=== PATIENT | female | born 1975 | race Caucasian/White ===

== ENCOUNTER 2018-09-02 16:13 | Emergency (ER) | payer MEDICAID, OTHER, SELFPAY ==
[~2018-09-02] VITALS: Ht 149.9 cm; Wt 77.3 kg
--- NOTE | 2018-09-02 16:52 | NUR ---
Patient to ED for being nausea and vomiting this morning since eating [employer]; patient presents tachypnic with hand cramps; patient encouraged to breath deep by provider and RN's at bedside; patient yelling at RN and provider stating cramps are due to dehydration; patient educated that source of cramps is from rapid breathing; patient denies; calms down periodically then becomes tachypnic again crying. Attached to monitor; vss; awaiting orders.
[2018-09-02] MEDS ORDERED: ONDANSETRON 2MG/ML, 2ML IVPush ONE (17:00)
[2018-09-02] MEDS ORDERED: ZIPRASIDONE 20 MG INJ IM ONE ×2 (17:00→17:06)
[2018-09-02] MEDS ORDERED: FAMOTIDINE 20 MG/2 ML IVP ONE (17:00)
[2018-09-02] MEDS ORDERED: MAALOX/HYOSCYAMINE/LIDOCAINE 45 ML BTL PO ONE (17:00)
[2018-09-02] MEDS ORDERED: FAMOTIDINE 20 MG/2 ML ONE (17:06)
[2018-09-02] MEDS ORDERED: ONDANSETRON 2MG/ML, 2ML ONE (17:06)
[2018-09-02] MEDS ORDERED: MAALOX/HYOSCYAMINE/LIDOCAINE 45 ML BTL ONE (17:06)
--- NOTE | 2018-09-02 17:24 | NUR ---
LUNCH RN: PIV PLACED and medicated per emar.
[2018-09-02 17:29] LABS: BASOPHILS # (AUTO) 0.02 x10^3/uL (0-0.1); BASOPHILS % (AUTO) 0 % (0-1); EOSINOPHILS % (AUTO) 0 % (1-7); LYMPHOCYTES # (AUTO) 1.63 x10^3/uL (1-3.4); LYMPHOCYTES % (AUTO) 12 % (22-44); MD NO; MEAN CORPUSCULAR HEMOGLOBIN 31.2 pg (27.0-34.8); MEAN CORPUSCULAR HGB CONC 33.1 g/dL (32.4-35.8); MONOCYTES # (AUTO) 0.26 x10^3/uL (0.2-0.8); MONOCYTES % (AUTO) 2 % (2-9); NEUTROPHILS # (AUTO) 12.12 x10^3/uL (1.8-6.8); NEUTROPHILS % (AUTO) 86 % (42-75); PLATELET COUNT 344 x10^3/uL (130-400); RED BLOOD COUNT 5.15 x10^6/uL (3.82-5.3)
[2018-09-02 17:38] LABS: ALBUMIN 3.9 g/dL (3.4-5.0); ANION GAP 11 mmol/L (5-15); CALCIUM 9.3 mg/dL (8.5-10.1); CHLORIDE 107 mmol/L (98-107)
[2018-09-02 17:43] LABS: ALANINE AMINOTRANSFERASE 16 U/L (12-78); ALKALINE PHOSPHATASE 85 U/L (45-117); BILIRUBIN,TOTAL 1.1 mg/dL (0.2-1.0); CREATININE 0.84 mg/dL (0.55-1.02)
--- NOTE | 2018-09-02 17:43 | NUR ---
LUNCH RN: PT GIVEN BLANKET FOR COMFORT
[2018-09-02] MEDS ORDERED: SODIUM CHLORIDE FLUSH 10ML SYR IVF ONE (18:00)
--- NOTE | 2018-09-02 18:31 | NUR ---
Patient sleeping; children at side of bed. VSS; awaiting orders
--- NOTE | 2018-09-02 18:42 | NUR ---
patient informed that the ed providers have ordered a urine and stool sample test. Patient reports she doesn't want to get up it's cold. After encouragement patient was escorted to bathroom with standby assistance; instructions for clean catch repeated in room, on way and in bathroom. Patient continues to deny being able to give stool sample.
--- NOTE | 2018-09-02 18:51 | NUR ---
pt to rr with steady gait and stand by assistance from rn. pt tolerated well. no n/v. ua collected and sent. pt unable to provide stool sample at this time.
[2018-09-02 18:59] LABS: CULTURE INDICATED? NO; MICROSCOPIC AUTO
[2018-09-02 20:12] VITALS: BP 173/95
== END 2018-09-02 20:22 | disposition home or self-care (01) ==
LOC: ED 20:16
DX: R11.2 Nausea with vomiting, unspecified (principal); R19.7 Diarrhea, unspecified; Z88.2 Allergy status to sulfonamides
CPT/HCPCS: 36415; 80053; 81001; 83690; 84703; 85025; 96372; 96374; 96375; 99283; J2405; J3486; J3490